=== PATIENT | female | born 1940 | race Caucasian/White ===

== ENCOUNTER 2022-11-25 09:49 | Inpatient (IN) | payer OTHER ==
[~2022-11-25] VITALS: Ht 167.6 cm; Wt 55.3 kg
[2022-11-25 09:50] VITALS: BP 128/78
--- NOTE | 2022-11-25 09:58 | NUR ---
[facility] TO ER BED 7
[2022-11-25] MEDS ORDERED: cefTRIAXone 1,000 MG in DEXT 5% MINI-BAG PLUS 50 ML IV ONE (10:10)
[2022-11-25] MEDS ORDERED: NACL 0.9% 2,000 ML IV SCH (10:10)
--- NOTE | 2022-11-25 10:45 | NUR ---
lab at bedside.
[2022-11-25] MEDS ORDERED: HUM SUBQ (11:00)
[2022-11-25] MEDS ORDERED: PRED20TA6 PO (11:00)
[2022-11-25] MEDS ORDERED: LEVO0.124 PO (11:00)
[2022-11-25] MEDS ORDERED: MAGN400T7 PO (11:00)
[2022-11-25] MEDS ORDERED: GLIP10TE PO (11:00)
[2022-11-25] MEDS ORDERED: INSU100S22 SUBQ (11:00)
[2022-11-25] MEDS ORDERED: CITA-71 PO (11:00)
[2022-11-25] MEDS ORDERED: ATOR20TA PO (11:00)
[2022-11-25] MEDS ORDERED: AZIT250T4 PO ×2 (11:00)
[2022-11-25] MEDS ORDERED: APIX2.5 PO (11:00)
[2022-11-25] MEDS ORDERED: DONE10TA10 PO (11:00)
--- NOTE | 2022-11-25 11:00 | NUR ---
82 y/o female biba from [facility] c/o generalized weakness x 3 days. Patient has a 20G IV Left Hand and a Bolus of 1000 ml NS started by EMS. Patient denies any pain. Patient is on 3 LPM. Medical History: AFIB, DM, Hypothyroid, Dementia, HLD, Alzheimers NKDA
--- NOTE | 2022-11-25 11:02 | NUR ---
MED REC COMPLETE
[2022-11-25 11:19] LABS: BASOPHILS % (AUTO) 0.1 % (0.0-2.0); HEMOGLOBIN 11.8 g/dL (12.0-16.0); LYMPHOCYTES # (AUTO) 0.5 K/uL (2.5-16.5); LYMPHOCYTES % (AUTO) 6.4 % (20.5-51.1); MEAN CORPUSCULAR HEMOGLOBIN 29 pg (27-31); MEAN CORPUSCULAR HGB CONC 33 g/dL (33-37); MEAN CORPUSCULAR VOLUME 87.5 fL (80-94); MONOCYTES # (AUTO) 0.2 K/uL (0.8-1.0); MONOCYTES % (AUTO) 2.8 % (1.7-9.3); NEUTROPHILS # (AUTO) 7.6 K/uL (1.8-7.7); NEUTROPHILS % (AUTO) 90.7 % (42.2-75.2); PLATELET COUNT (AUTO) 284 K/uL (140-450); RED BLOOD CELL COUNT(AUTO) 4.11 MIL/uL (4.20-5.40); RED CELL DISTRIBUTION WIDTH 15.9 % (11.6-13.7); WHITE BLOOD COUNT (AUTO) 8.4 K/uL (4.8-10.8)
[2022-11-25 11:28] LABS: ALBUMIN 3.1 g/dL (3.4-5.0); ANION GAP 14.2 (8-16); ASPARTATE AMINOTRANSFERASE 73 U/L (15-37); CHLORIDE 90 mmol/L (98-107); GLUCOSE 138 mg/dL (74-106); POTASSIUM 4.2 mmol/L (3.5-5.1); SODIUM SERUM 127 mmol/L (136-145); TOTAL BILIRUBIN 0.7 mg/dL (0.0-1.0); UREA NITROGEN, BLOOD 34 mg/dL (7-18)
--- NOTE | 2022-11-25 11:41 | NUR ---
DR. GARCIA, ADMITTING DOCTOR, EVALUATING PATIENT AT BEDSIDE.
--- NOTE | 2022-11-25 12:01 | NUR ---
LAB AT BEDSIDE.
[2022-11-25 12:17] LABS: APPEARANCE,URINE CLEAR (CLEAR); BILIRUBIN,URINE NEGATIVE (NEGATIVE); BLOOD, URINE 1+ (NEGATIVE); COLOR,URINE YELLOW (YELLOW); LEUKOCYTE ESTERASE ,URINE NEGATIVE (NEGATIVE); NITRITE, URINE NEGATIVE (NEGATIVE); UGLUCOSE NEGATIVE (NEGATIVE)
[2022-11-25] MEDS ORDERED: cefTRIAXone 1,000 MG VIAL ONE (12:30)
[2022-11-25] MEDS ORDERED: HYDROcodone/APAP 7.5/325 MG 1 TAB PO PRN (12:45)
[2022-11-25] MEDS ORDERED: ACETAMINOPHEN 325 MG TAB PO PRN (12:45)
[2022-11-25] MEDS ORDERED: DEXTROSE 50% 50 ML SYR IVP PRN (12:45)
[2022-11-25] MEDS ORDERED: INSULIN LISPRO SLIDING SCALE 100 UNITS/ML VIAL SUBQ PRN (12:45)
[2022-11-25] MEDS: NACL 0.9% 1,000 ML IV SCH ×2 (12:59→20:25)
--- NOTE | 2022-11-25 13:04 | NUR ---
The patient's care was reviewed and supervised by MADIE CLAYTON RN.
[2022-11-25] MEDS ORDERED: CRUSHER, PILL MC ONE (13:52)
[2022-11-25] MEDS ORDERED: VANCOMYCIN PER PHARMACY MC PRN (13:55)
[2022-11-25] MEDS: MAGNESIUM OXIDE 400 MG TAB PO SCH ×2 (13:56→18:04)
--- NOTE | 2022-11-25 14:03 | NUR ---
Lab at bedside.
[2022-11-25 14:32] LABS: ANION GAP 12.4 (8-16); CARBON DIOXIDE 27.6 mmol/L (21-32); CHLORIDE 92 mmol/L (98-107); GLUCOSE 162 mg/dL (74-106); SODIUM SERUM 127 mmol/L (136-145); UREA NITROGEN, BLOOD 32 mg/dL (7-18)
[2022-11-25 14:38] LABS: PROTHROMBIN TIME 12.2 secs (10.8-13.4)
[2022-11-25 14:45] LABS: CHOL/HDL RATIO 2.2 (1-4.5); FREE T4 (FREE THYROXINE) 0.64 ng/dL (0.76-1.46); MAGNESIUM 1.8 mg/dL (1.8-2.4); PHOSPHORUS 4.9 mg/dL (2.5-4.9); THYROID STIMULATING HORMONE 13.44 uIU/mL (0.34-3.74)
--- NOTE | 2022-11-25 15:18 | NUR ---
Ultrasound at bedside.
[2022-11-25] MEDS ORDERED: VANCOMYCIN 1,000 MG VIAL ONE (16:10)
[2022-11-25] MEDS ORDERED: INSULIN LISPRO 100 UNITS/ML VIAL SUBQ SCH (16:30)
--- NOTE | 2022-11-25 16:55 | NUR ---
Patient was made clean and dry. All needs met by staff.
[2022-11-25] MEDS: glipiZIDE ER 5 MG TABER PO SCH ×2 (16:57→20:20)
[2022-11-25] MEDS: VANCOMYCIN 1,000 MG in DEXTROSE 5% 250 ML IV SCH (17:02)
[2022-11-25] MEDS: BLOOD GLUCOSE MONITORING 1 DEV DEV FS SCH ×2 (17:04→20:25)
[2022-11-25] MEDS: INSULIN LISPRO SLIDING SCALE 100 UNITS/ML VIAL SUBQ PRN (17:06)
--- NOTE | 2022-11-25 17:15 | NUR ---
Patient was offered dinner tray. Tray left at bedside.
[2022-11-25] MEDS: DONEPEZIL 10 MG TAB PO SCH (18:03)
--- NOTE | 2022-11-25 18:18 | NUR ---
Patient will be admitted to care of DR. GARCIA. Admited to TELEMTRY. Will go to room 107-B. Belongings list completed. Report to JOVANNI FIELD.
[2022-11-25 18:32] VITALS: BP 116/67
--- NOTE | 2022-11-25 18:34 | NUR ---
The patient's care was reviewed and supervised by ED Agency Nurse 8, RN, RN.
--- NOTE | 2022-11-25 18:34 | NUR ---
Patient is an 82 year old female arrival to room 108 from [facility] and will be an admission under the care of Doctor_ for _. Patient is visiting with Doctor Chepe at bedside. She denies discomfort. Her breathing is moist sounding and tachypneic, 32 breaths per minute, she is on 4 liters via nasal cannula. Her archeologist shows atrial fibrillation at 118 beats per minute. She received a total of 2 liters of normal saline via intravenous route, was given 10 milligrams of aricept and glucotrol by mouth, 1 gram of vancomycin intravenous piggyback and 400 milligrams of magnesium by mouth in the emergency room. She is confused but answers simple questions in Slovak.
[2022-11-25] MEDS ORDERED: DIGOXIN 0.25 MG/ML AMP IV SCH (18:45)
[2022-11-25 20:00] VITALS: BP 96/52
[2022-11-25] MEDS: ATORVASTATIN 20 MG TAB PO SCH (20:20)
[2022-11-25] MEDS: DOCUSATE SODIUM 100 MG GELCAP PO SCH (20:20)
[2022-11-25] MEDS: APIXABAN 2.5 MG TAB PO SCH (20:21)
[2022-11-25] MEDS: CITALOPRAM 20 MG TAB PO SCH (20:21)
[2022-11-25] MEDS: PIPERACILLIN/TAZOBACTAM 3.375 GM in DEXTROSE 5% 50 ML IV SCH (20:22)
[2022-11-25] MEDS: INSULIN LANTUS 100 UNITS/ML 10 ML VIAL SUBQ SCH (20:25)
--- NOTE | 2022-11-25 20:30 | NUR ---
ASSUMED CARE OF PATIENT AT THIS TIME. A/O X 4. VSS. AFEBRILE. RESPIRATIONS EVEN AND UNLABOTRED. ON O2 AT 4LNC WITH O2 SAT OF 97%. A-FIB ON TELE MONITOR. DAUGHTER AT BEDSIDE AND ANSWERED ALL ADMISSION QUESTIONS. PATIENT SKIN INTACT. DENIES PAIN AT THIS TIME. ORIENTED TO ROOM AND CALL LIGHT SYSTEM. WILL CONTINUE TO MONITOR FOR SAFETY. Brian PÉREZ RN.
[2022-11-25] MEDS ORDERED: NON-FORMULARY ITEM (Insulin Glargine,Hum.rec.anlog (Lantus Solostar) 10 UNIT) SUBQ SCH (21:00)
[2022-11-26] VITALS (9 sets, daily range): BP systolic 80–130; BP diastolic 38–77
--- NOTE | 2022-11-26 00:30 | NUR ---
PATIENT SLEEPING COMFORTABLY WITH NO ACUTE DISTRESS NOTED. WILL CONTINUE TO MONITOR FOR SAFETY. Brian PÉREZ RN.
[2022-11-26] MEDS: PIPERACILLIN/TAZOBACTAM 3.375 GM in DEXTROSE 5% 50 ML IV SCH ×3 (04:46→21:30)
[2022-11-26] MEDS ORDERED: DIGOXIN 0.25 MG/ML AMP IV SCH ×2 (06:00)
--- NOTE | 2022-11-26 06:00 | NUR ---
PATIENT REMAINS IN STABLE CONDITION. NO ACUTE DISTRESS NOTED. Brian PÉREZ RN.
[2022-11-26] MEDS ORDERED: LEVOTHYROXINE 0.025 MG TAB ONE (06:15)
[2022-11-26] MEDS ORDERED: LEVOTHYROXINE 0.1 MG TAB ONE (06:15)
[2022-11-26] MEDS: BLOOD GLUCOSE MONITORING 1 DEV DEV FS SCH ×4 (06:18→20:19)
[2022-11-26] MEDS: LEVOTHYROXINE 0.1 MG, LEVOTHYROXINE 0.025 MG PO SCH ×2 (06:19)
[2022-11-26 07:04] LABS: BASOPHILS % (AUTO) 0.1 % (0.0-2.0); HEMATOCRIT 35.9 % (36-48); LYMPHOCYTES # (AUTO) 0.9 K/uL (2.5-16.5); LYMPHOCYTES % (AUTO) 9.8 % (20.5-51.1); MEAN CORPUSCULAR HEMOGLOBIN 29 pg (27-31); MEAN CORPUSCULAR HGB CONC 33 g/dL (33-37); MEAN CORPUSCULAR VOLUME 86.2 fL (80-94); MONOCYTES # (AUTO) 0.6 K/uL (0.8-1.0); MONOCYTES % (AUTO) 6.7 % (1.7-9.3); NEUTROPHILS # (AUTO) 7.8 K/uL (1.8-7.7); NEUTROPHILS % (AUTO) 83.4 % (42.2-75.2); PLATELET COUNT (AUTO) 316 K/uL (140-450); RED BLOOD CELL COUNT(AUTO) 4.16 MIL/uL (4.20-5.40); RED CELL DISTRIBUTION WIDTH 15.4 % (11.6-13.7); WHITE BLOOD COUNT (AUTO) 9.3 K/uL (4.8-10.8)
[2022-11-26 07:07] LABS: CARBON DIOXIDE 27.4 mmol/L (21-32); CHLORIDE 93 mmol/L (98-107); CREATININE 0.9 mg/dL (0.6-1.3); GLUCOSE 109 mg/dL (74-106); POTASSIUM 4.4 mmol/L (3.5-5.1); SODIUM SERUM 128 mmol/L (136-145); UREA NITROGEN, BLOOD 29 mg/dL (7-18)
--- NOTE | 2022-11-26 07:42 | NUR ---
RECEIVED PT CARE AND REPORT FROM TATE BAIG. PT IS RESTING IN BED SEMI FOWLERS WITH OU CLOSED. NO VISIBLE S/S OF DISTRESS, DISCOMFORT, PAIN OR SOB. CALL LIGHT IS WITHIN REACH, ALL NEEDS MET AT THIS TIME.
[2022-11-26 07:46] LABS: MAGNESIUM 1.8 mg/dL (1.8-2.4); PHOSPHORUS 4.1 mg/dL (2.5-4.9)
--- NOTE | 2022-11-26 08:00 | NUR ---
MISTAKE MADE ON VITALS FOR 0800. RESPIRATIONS DOCUMENTED 80. RESPIRATIONS WERE 20 AT THIS TIME.
[2022-11-26] MEDS: MAGNESIUM OXIDE 400 MG TAB PO SCH ×3 (08:09→17:44)
[2022-11-26] MEDS: APIXABAN 2.5 MG TAB PO SCH ×2 (08:10→21:00)
[2022-11-26] MEDS: glipiZIDE ER 5 MG TABER PO SCH ×4 (08:10→20:32)
[2022-11-26] MEDS: DOCUSATE SODIUM 100 MG GELCAP PO SCH ×2 (08:11→21:00)
[2022-11-26] MEDS: PANTOPRAZOLE 40 MG INJ VIAL IVP SCH (08:11)
--- NOTE | 2022-11-26 08:17 | NUR ---
PATIENT WAS GIVEN 0900 MEDICATIONS. BREAKFAST AT BEDSIDE. OFFERED TO PT BUT SHE REFUSED. ATTEMPTED TO ENCOURAGE PATIENT TO EAT. HOWEVER, SHE CONTINUED TO REFUSE AND STATE THAT SHE IS NOT HUNGRY AT THIS TIME. OFFERED ALTERNATIVE SNACKS BUT PT CONTINUES TO REFUSE.
--- NOTE | 2022-11-26 08:25 | NUR ---
CALLED PHARMACY AND SPOKE WITH JOSE M. CONFIRMED THAT 0615 SYNTHROID ORDERS WERE GIVEN AT 0619 BY NOC SHIFT.
--- NOTE | 2022-11-26 08:30 | NUR ---
SPOKE WITH DR. SNOW. ORDERD STAT CXR FOR CONGESTION AND SOB. CXR ORDERED. ALSO ORDERED STAT BLOOD SUGAR. BLOOD SUGAR 111. WILL REPORT TO DR. SNOW AND AWAIT FURTHER ORDERS.
[2022-11-26] MEDS ORDERED: NON-FORMULARY ITEM (Levothyroxine Sodium* (Synthroid*) 0.125 MG) PO SCH (09:00)
[2022-11-26] MEDS ORDERED: FUROSEMIDE 20 MG/2 ML VIAL IVP SCH (09:11)
[2022-11-26] MEDS: ALBUTEROL SULFATE/IPRATROPIU 3 ML SOL IH SCH ×3 (11:00→22:28)
[2022-11-26] MEDS: VANCOMYCIN 1,000 MG in DEXTROSE 5% 250 ML IV SCH (16:31)
[2022-11-26] MEDS: ONDANSETRON 4 MG/2 ML VIAL IVP PRN (16:32)
--- NOTE | 2022-11-26 16:51 | NUR ---
DAUGHTER FABI PRESENT AT BEDSIDE. ASKING WHAT PLAN IS FOR NUTRITION FOR PT D/T PT REFUSAL TO EAT. PT APPEARS TO BE PERSPIRING AND IS COMPLAINING OF NAUSEA AND BODY PAIN. ADMINISTERED PRN ZOFRAN 4MG IV FOR NAUSEA AND PRN TYLENOL 650MG FOR PAIN. WILL CONTINUE TO MONITOR. EMESIS BAG PROVIDED. TEXTED DR. SNOW TO REPORT PT CONDITION AND ASKING ABOUT NUTRITION PLAN FOR PATIENT.
--- NOTE | 2022-11-26 16:58 | NUR ---
DR. SNOW RESPONDED AND ORDERED SWALLOW EVAL. ORDER PLACED.
[2022-11-26] MEDS ORDERED: FUROSEMIDE 20 MG/2 ML VIAL IVP ONE (17:15)
[2022-11-26] MEDS: DONEPEZIL 10 MG TAB PO SCH (17:44)
--- NOTE | 2022-11-26 18:41 | NUR ---
PT IS RESTING IN BED SEMI FOWLERS WITH OU CLOSED. NO VISIBLE S/S OF DISTRESS OR DISCOMFORT. PT DENIES ANY PAIN OR SOB AT THIS TIME. STATES SHE IS NO LONGER FEELING NAUSEOUS AT THIS TIME. PT NO LONGER PERSPIRING AT THIS TIME. FAMILY AT BEDSIDE. CALL LIGHT IS WITHIN REACH, ALL NEEDS MET AT THIS TIME. WILL ENDORSE TO NOC SHIFT NURSE.
--- NOTE | 2022-11-26 20:12 | NUR ---
ASSUMED CARE OF PATIENT AT THIS TIME. PATIENT BLOOD PRESSURE 80/38 WITH HEART RATE OF 65. PATIENT STATES SHE IS NOT FEELING WELL AND IS DIAPHORETIC. BLOOD GLUCOSE LEVEL 133. DR. SNOW CALLED AND NOTIFIED. ORDERS GIVEN TO TRANSFER PATIENT TO ICU AND START LEVOPHED. JOVANNI DONAHUELICENSED MASSAGE PRACTITIONER NURSE NOTIFIED. Brian PÉREZ RN.
[2022-11-26] MEDS: INSULIN LANTUS 100 UNITS/ML 10 ML VIAL SUBQ SCH (20:33)
--- NOTE | 2022-11-26 20:33 | NUR ---
PATIENT BLOOD GLUCOSE 133. PATIENT HAS NOT EATEN IN OVER 3 DAYS. BLOOD GLUCOSE MEDICATIONS HELD. Brian PÉREZ RN.
--- NOTE | 2022-11-26 20:54 | NUR ---
TRANSFERRING PATIENT TO ICU BED 5. FABI PATIENT'S DAUGHTER CALLED AND NOTIFIED. Brian PÉREZ RN.
[2022-11-26] MEDS: ATORVASTATIN 20 MG TAB PO SCH (21:00)
[2022-11-26] MEDS: MIDODRINE 5 MG TAB PO SCH (21:00)
[2022-11-26] MEDS: CITALOPRAM 20 MG TAB PO SCH (21:00)
--- NOTE | 2022-11-26 21:01 | NUR ---
PT. TRANSFERRED TO ICU FROM TELEMETRY UNIT DUE TO HYPOTENSION AND NEED LEVOPHED DRIP PER DR. SNOW. REPORT GIVEN BY JOVANNI YBARRA. PT. ALERT, AWAKE AND WEAK. BP 80/40, HR 72, R 22, O2 SAT 95% NC 2L. PERIPHERAL IV TO LEFT HAND 20G PATENT AND INTACT. PER REPORT PT. HAS A VERY POOR APPETITE. SKIN INTACT. INITIAL ASSESSMENT DONE. BILATERAL LUNG SOUNDS DIMINISHED. EYES REACTIVE TO LIGHT AND ACCOMMODATION. ABDOMINAL SOUNDS HYPOACTIVE. ANTICIPATED ALL NEEDS. REPOSITIONED AND PLACED IN COMFORTABLE POSITION. NO S/S OF PAIN. WILL CONT. TO MONITOR.
--- NOTE | 2022-11-26 21:01 | NUR ---
REPORT GIVEN TO JOVANNI BANERJEE. Brian PÉREZ RN.
[2022-11-26] MEDS ORDERED: NOREPINEPHRINE 4 MG/4 ML VIAL IV ONE (21:05)
[2022-11-26] MEDS: NOREPINEPHRINE 4 MG in DEXTROSE 5% 250 ML IV PRN (21:10)
[2022-11-26] MEDS ORDERED: NOREPINEPHRINE 4 MG in DEXTROSE 5% 250 ML IV PRN (22:25)
--- NOTE | 2022-11-26 22:50 | NUR ---
PT. SCHEDULE 2100 PO MEDICATIONS NOT GIVEN DUE TO PT.SWALLOWING ABILITY IS SO WEAK. WILL CONT. TO MONITOR.
--- NOTE | 2022-11-26 22:54 | NUR ---
SENT MESSAGE TO DR. SNOW THAT LEVOPHED DRIP 4MG STARTED AND PO MEDS FOR 2100 NOT GIVEN DUE TO PT. WEAK ABILITY TO SWALLOW. DR. SNOW RESPONDED OK, TY. WILL ENDORSE TO THE NEXT SHIFT.
[2022-11-27] VITALS (25 sets, daily range): BP systolic 95–121; BP diastolic 43–76
[2022-11-27] MEDS: PIPERACILLIN/TAZOBACTAM 3.375 GM in DEXTROSE 5% 50 ML IV SCH ×3 (04:55→20:24)
--- NOTE | 2022-11-27 05:05 | NUR ---
LAB CAME AND DRAWN BLOOD FOR MG,PHOS,CBC AND BMP.
[2022-11-27 06:15] LABS: MAGNESIUM 1.6 mg/dL (1.8-2.4); PHOSPHORUS 3.7 mg/dL (2.5-4.9)
[2022-11-27] MEDS: LEVOTHYROXINE 0.1 MG, LEVOTHYROXINE 0.025 MG PO SCH ×2 (06:22)
--- NOTE | 2022-11-27 06:23 | NUR ---
SYNTHROID PO NOT GIVEN, PT. TOO WEAK TO SWALLOW, WITH GENERALIZED WEAKNESS. CONT. ON LEVOPHED DRIP 6MCG/MIN. WILL ENDORSE TO THE NEXT SHIFT.
[2022-11-27 06:37] LABS: CARBON DIOXIDE 25.1 mmol/L (21-32); CHLORIDE 90 mmol/L (98-107); CREATININE 1.2 mg/dL (0.6-1.3); GLUCOSE 180 mg/dL (74-106); POTASSIUM 3.1 mmol/L (3.5-5.1); SODIUM SERUM 128 mmol/L (136-145); UREA NITROGEN, BLOOD 29 mg/dL (7-18)
[2022-11-27 07:08] LABS: MONOCYTES # (AUTO) 0.7 K/uL (0.8-1.0)
--- NOTE | 2022-11-27 07:10 | NUR ---
PATIENT HAS BEEN SCREENED AND CATEGORIZED HIGH NUTRITION RISK. PATIENT WILL BE SEEN WITHIN 1-2 DAYS OF ADMISSION. 11/27/22-11/30/[address] CONSULT RECEIVED FOR DIABETES AND DECREASE APPETITE 3 DAYS
[2022-11-27] MEDS: glipiZIDE ER 5 MG TABER PO SCH (07:30)
[2022-11-27] MEDS: BLOOD GLUCOSE MONITORING 1 DEV DEV FS SCH ×4 (07:30→20:42)
[2022-11-27 07:42] LABS: HEMOGLOBIN 12.9 g/dL (12.0-16.0); RED BLOOD CELL COUNT(AUTO) 4.58 MIL/uL (4.20-5.40); WHITE BLOOD COUNT (AUTO) 15.9 K/uL (4.8-10.8)
[2022-11-27 07:43] LABS: HEMATOCRIT 39.6 % (36-48); MEAN CORPUSCULAR HEMOGLOBIN 28 pg (27-31); MEAN CORPUSCULAR VOLUME 86.4 fL (80-94)
[2022-11-27 07:44] LABS: MEAN CORPUSCULAR HGB CONC 33 g/dL (33-37); PLATELET COUNT (AUTO) 333 K/uL (140-450); RED CELL DISTRIBUTION WIDTH 15.4 % (11.6-13.7)
[2022-11-27 07:45] LABS: MONOCYTES % (AUTO) 4.4 % (1.7-9.3); NEUTROPHILS % (AUTO) 91.5 % (42.2-75.2)
[2022-11-27 07:46] LABS: BASOPHILS % (AUTO) 0.1 % (0.0-2.0); LYMPHOCYTES # (AUTO) 0.6 K/uL (2.5-16.5); NEUTROPHILS # (AUTO) 14.5 K/uL (1.8-7.7)
[2022-11-27] MEDS: ALBUTEROL SULFATE/IPRATROPIU 3 ML SOL IH SCH ×5 (07:55→23:21)
[2022-11-27] MEDS: DOCUSATE SODIUM 100 MG GELCAP PO SCH ×2 (09:04→20:26)
[2022-11-27] MEDS: MIDODRINE 5 MG TAB PO SCH ×2 (09:06→20:27)
[2022-11-27] MEDS: MAGNESIUM OXIDE 400 MG TAB PO SCH ×3 (09:06→17:21)
[2022-11-27] MEDS: APIXABAN 2.5 MG TAB PO SCH ×2 (09:07→20:26)
[2022-11-27] MEDS: PANTOPRAZOLE 40 MG INJ VIAL IVP SCH (09:26)
[2022-11-27] MEDS: INSULIN LISPRO SLIDING SCALE 100 UNITS/ML VIAL SUBQ PRN ×3 (09:30→20:40)
[2022-11-27] MEDS: ONDANSETRON 4 MG/2 ML VIAL IVP PRN (10:47)
--- NOTE | 2022-11-27 11:33 | NUR ---
11/27/22 RD INITIAL ASSESSMENT COMPLETED PLEASE REFER TO NUTRITION ASSESSMENT UNDER CARE ACTIVITY FOR ESTIMATED NUTRITIONAL NEEDS. 1. CONTINUE CCHO DIET TOLERATED. -WHEN/IF MEDICALLY APPROPROPRIATE TO INITIATE TF, RECOMMEND GLUCERNA 1.2 CRUZ WITH A GOAL RATE OF 55 ML/HR ; FWF 150 ML Q8H 2. RECOMMEND GLUCERNA BID TO OPTIMIZE NUTRITIONAL NEEDS 3. RD TO FOLLOW-UP 2-3 DAYS, HIGH RISK SALOME BREWSTER RD
[2022-11-27] MEDS: FUROSEMIDE 20 MG/2 ML VIAL IVP SCH ×2 (11:41→20:25)
[2022-11-27] MEDS ORDERED: KCL 20 MEQ IN 100 mL PREMIX 200 ML IV SCH (14:00)
[2022-11-27] MEDS: VANCOMYCIN 1,000 MG in DEXTROSE 5% 250 ML IV SCH (16:00)
[2022-11-27] MEDS: DONEPEZIL 10 MG TAB PO SCH (17:21)
--- NOTE | 2022-11-27 18:36 | NUR ---
PT REMAINED STABLE THROUGHOUT SHIFT AND VITAL SIGNS WERE STABLE BUT STILL NEEDS PRESSOR REQUIREMENTS. PRN PAIN MEDS GIVEN FOR BACK PAIN. PT WAS PLACED ON BIPAP MACHINE TO EASE WORK OF BREATHING IN WHICH PATIENT TOLERATED WELL. LASIX WAS STARTED TO DIURESE PATIENT IN RESPONSE TO CRACKLY LUNG SOUNDS. TOLERATED ALL PO INTAKE WITHOUT COMPLICATION. PICC LINE WAS PLACED TODAY IN RIGHT UPPER ARM AND PLACEMENT WAS CONFIRMED
[2022-11-27 19:16] LABS: BARBITURATE, URINE NEGATIVE ng/ml (NEG <=200); BENZODIAZEPINE, URINE NEGATIVE ng/mL (NEG <=200); CANNABINOID, URINE NEGATIVE ng/mL (NEG <=50); COCAINE, URINE NEGATIVE ng/mL (NEG <=300); OPIATE, URINE NEGATIVE ng/mL (NEG <=2000); PHENCYCLIDINE SCREEN,URINE NEGATIVE ng/mL (NEG <=25)
--- NOTE | 2022-11-27 19:52 | NUR ---
PT TAKEN OFF BIPAP AND PLACED ON 2L N/C. PT TOLERATING WELL. NO NOTED RESP DISTRESS OR SOB. WILL CONT TO MONITOR.
[2022-11-27] MEDS: MAG SULF 2000 MG/WATER PREMIX 50 ML IV PRN (20:22)
[2022-11-27] MEDS: ATORVASTATIN 20 MG TAB PO SCH (20:28)
[2022-11-27] MEDS: NOREPINEPHRINE 4 MG in DEXTROSE 5% 250 ML IV PRN (20:48)
[2022-11-27] MEDS: CITALOPRAM 20 MG TAB PO SCH (21:27)
--- NOTE | 2022-11-27 21:36 | NUR ---
RECEIVED PT. FROM DAY SHIFT JOVANNI BLEDSOE. PT. AWAKE, ALERT AND FOLLOW SIMPLE COMMANDS. PT. ON BIPAP WITH O2 SAT 98%. IV TO RIGHT UPPER ARM PICC LINE, RUNNING LEVOPHED DRIP AT 6MCG/MIN. PERIPHERAL IV TO LEFT HAND 20G PATENT, INTACT, CAPPED AND FLUSHED. BILATERAL LUNG SOUNDS DIMINISHED. BOWEL SOUNDS ACTIVE. DIET IS CONSISTENT CARBOHYDRATE. SKIN INTACT. REPOSITIONED AND PLACED IN COMFORTABLE POSITION. PLACED CALL LIGHT WITHIN REACH. SCHEDULED IVPB AND PO MEDS GIVEN AND PT. NO PROBLEM IN SWALLOWING PO MEDS. MG LEVEL 1.6 AND MAG RIDER IVPB PRN GIVEN. MAKE ALL NEEDS KNOWN. NO S/S OF RESPIRATORY DISTRESS AND NO S/S OF PAIN. WILL CONT. TO MONITOR.
[2022-11-28] VITALS (24 sets, daily range): BP systolic 96–121; BP diastolic 44–64
[2022-11-28] MEDS: ALBUTEROL SULFATE/IPRATROPIU 3 ML SOL IH SCH ×6 (03:25→22:55)
[2022-11-28 05:12] LABS: BASOPHILS % (AUTO) 0.3 % (0.0-2.0); EOSINOPHILS # (AUTO) 0.1 K/uL (0-0.4); EOSINOPHILS % (AUTO) 1.2 % (0.0-4.0); HEMATOCRIT 35.2 % (36-48); HEMOGLOBIN 11.9 g/dL (12.0-16.0); LYMPHOCYTES # (AUTO) 0.9 K/uL (2.5-16.5); LYMPHOCYTES % (AUTO) 12.8 % (20.5-51.1); MEAN CORPUSCULAR HEMOGLOBIN 29 pg (27-31); MEAN CORPUSCULAR HGB CONC 34 g/dL (33-37); MEAN CORPUSCULAR VOLUME 84.2 fL (80-94); MONOCYTES # (AUTO) 0.3 K/uL (0.8-1.0); MONOCYTES % (AUTO) 5.1 % (1.7-9.3); NEUTROPHILS # (AUTO) 5.4 K/uL (1.8-7.7); NEUTROPHILS % (AUTO) 80.6 % (42.2-75.2); PLATELET COUNT (AUTO) 334 K/uL (140-450); RED BLOOD CELL COUNT(AUTO) 4.17 MIL/uL (4.20-5.40); RED CELL DISTRIBUTION WIDTH 15.8 % (11.6-13.7); WHITE BLOOD COUNT (AUTO) 6.7 K/uL (4.8-10.8)
[2022-11-28] MEDS: PIPERACILLIN/TAZOBACTAM 3.375 GM in DEXTROSE 5% 50 ML IV SCH ×3 (05:15→20:17)
[2022-11-28 05:32] LABS: ANION GAP 9.5 (8-16); CARBON DIOXIDE 33.2 mmol/L (21-32); CHLORIDE 91 mmol/L (98-107); CREATININE 1.1 mg/dL (0.6-1.3); GLUCOSE 134 mg/dL (74-106); SODIUM SERUM 131 mmol/L (136-145); UREA NITROGEN, BLOOD 22 mg/dL (7-18)
[2022-11-28 05:34] LABS: MAGNESIUM 2.1 mg/dL (1.8-2.4); PHOSPHORUS 2.7 mg/dL (2.5-4.9)
[2022-11-28 05:37] LABS: POTASSIUM 2.7 mmol/L (3.5-5.1)
--- NOTE | 2022-11-28 05:37 | NUR ---
LAB CALLED FOR K LEVEL 2.7. WILL SEND MESSAGE TO DR. GARCIA TO REPORT.
[2022-11-28] MEDS ORDERED: LEVOTHYROXINE 0.1 MG TAB ONE (06:15)
[2022-11-28] MEDS: LEVOTHYROXINE 0.1 MG, LEVOTHYROXINE 0.025 MG PO SCH ×2 (06:15)
[2022-11-28] MEDS ORDERED: LEVOTHYROXINE 0.025 MG TAB ONE (06:15)
[2022-11-28] MEDS: POTASSIUM CHLORIDE 10 MEQ TABER PO PRN (06:19)
--- NOTE | 2022-11-28 06:20 | NUR ---
K DUR 40 MEQ PO PRN GIVEN. PT. K LEVEL 2.7. SENT MESSAGE TO DR. GARCIA AND REPORTED. WILL WAIT FOR HER RESPONSE. WILL ENDORSE TO THE NEXT SHIFT.
--- NOTE | 2022-11-28 06:39 | NUR ---
DR. GARCIA ORDERED TO GIVE ANOTHER K RIDER 40MEQ IV.WILL ORDER AND WILL CARRY OUT.
[2022-11-28] MEDS ORDERED: KCL 20 MEQ IN 100 mL PREMIX 200 ML IV ONE ×2 (06:45→06:58)
[2022-11-28] MEDS: BLOOD GLUCOSE MONITORING 1 DEV DEV FS SCH ×4 (07:34→21:31)
[2022-11-28] MEDS: NOREPINEPHRINE 4 MG in DEXTROSE 5% 250 ML IV PRN (08:35)
--- NOTE | 2022-11-28 08:36 | NUR ---
PT. WITH LOW ANGEL SCALE AT MODERATE TO HIGH RISK, CONTINUE TO FOLLOW PRESSURE INJURY PREVENTION INTERVENTIONS. -POSITIONING: TURN AND REPOSITION PATIENT Q 2H OR SOONER USE PILLOWS TO KEEP BONY PROMINENCES FROM DIRECT CONTACT WITH SURFACES USE REPOSITIONING WEDGES TO PROVIDE 30-DEGREE ANGLE FOR SIDE LYING POSITIONS OFFLOADING OR FOAM DRESSING TO ALL TUBING TO PREVENT MEDICAL DEVICES RELATED PRESSURE INJURY -RE-EVALUATING AND MANAGING INCONTINENCE MONITOR SKIN CONDITION DURING POSITION CHANGE DO NOT MASSAGE REDNESS, BONY PROMINENCES FREQUENT TOMMY-CARE AND PROVIDE BARRIER CREAMS PRN IF SOILING MOISTURE CONTROL BY OFFER BED SEPULVEDA/URINAL /ABSORBENT PAD TO WICK AND HOLD MOISTURE KEEP SKIN DRY AND PROTECT FROM FRICTION -MANAGE FRICTION/SHEAR/MOBILITY KEEP HOB AT THE LOWEST LEVEL OF ELEVATION NO MORE THAN 30 DEGREE UNLESS OTHERWISE CONTRAINDICATED USE LIFT SHEET OR TRANSFER DEVICE TO MOVE PATIENT AND PREVENT LATERAL SHEER. PROTECT HEELS, ELBOWS BONY PROMINENCES WITH SKIN BERRIES OR FOAM DRESSING IF EXPOSED TO FRICTION OFFLOAD BILATERAL HEELS BY PLACING PILLOWS UNDER CALVES AT ALL TIMES, UNLESS OTHERWISE CONTRAINDICATED -PRESSURE REDISTRIBUTION SURFACE THERAPY ENE ISOFLEX MATTRESS -NUTRITION: PLEASE FOLLOW RD RECOMMENDATIONS AND OFFER NUTRITION SUPPLEMENTS IF ORDERED. PLEASE CONTACT WOUND CARE NURSE FOR ANY QUESTION AND CHANGE OF WOUND CONDITION.
[2022-11-28] MEDS: APIXABAN 2.5 MG TAB PO SCH ×2 (09:47→20:19)
[2022-11-28] MEDS: DOCUSATE SODIUM 100 MG GELCAP PO SCH ×2 (09:47→20:18)
[2022-11-28] MEDS: PANTOPRAZOLE 40 MG INJ VIAL IVP SCH (09:48)
[2022-11-28] MEDS: MAGNESIUM OXIDE 400 MG TAB PO SCH (09:48)
[2022-11-28] MEDS: FUROSEMIDE 20 MG/2 ML VIAL IVP SCH ×2 (09:49→20:18)
[2022-11-28] MEDS: MIDODRINE 5 MG TAB PO SCH ×2 (09:50→20:20)
[2022-11-28] MEDS: INSULIN LISPRO SLIDING SCALE 100 UNITS/ML VIAL SUBQ PRN ×2 (09:55→16:13)
[2022-11-28] MEDS ORDERED: MAGNESIUM OXIDE 400 MG TAB PO PRN (10:00)
--- NOTE | 2022-11-28 10:28 | NUR ---
POTASSIUM REPLACED, ATTEMPTED TO FEED PATIENT BUT PATIENT REFUSED AFTER A COUPLE OF BITES. WAS ABLE TO SWALLOW THE FEW BITES WITHOUT COMPLICATION. EXPLAINED THE IMPORTANCE OF EATING REGULARLY BUT PATIENT INSISTS SHE IS NOT HUNGRY
--- NOTE | 2022-11-28 12:24 | NUR ---
DC PLANNING ASSESSMENT COMPLETE PLEASE REFER TO ASSESSMENT FOR ADDITIONAL DETAILS FABI REPORTS TENTATIVE DC PLAN IS FOR PT TO RETURN TO [facility], WHEN MEDICALLY CLEARED BY PHYSICIAN. Addendum: 11/28/22 at 1225 by Gustavo Spangler SS Amended: Links added.
[2022-11-28] MEDS: VANCOMYCIN 1,000 MG in DEXTROSE 5% 250 ML IV SCH (16:02)
[2022-11-28] MEDS: DONEPEZIL 10 MG TAB PO SCH (16:02)
--- NOTE | 2022-11-28 18:42 | NUR ---
PT REMAINED STABLE THROUGHOUT SHIFT AND HAS REMAINED ON LEVO AT 4MCG/MIN. ATTEMPTED TO TITRATE DOWN BUT BLOOD PRESSURE DID NOT TOLERATE. HAD 1 BM THAT WAS MODERATE AND PASTY. NUTRITIONAL CONSULT CAME TO BEDSIDE AND CHANGED DIET TO MECHANICAL SOFT DIET. POTASSIUM WAS REPLACED IN THE AM. NO PRN PAIN MEDS GIVEN. PT TURNED Q 2. SKIN WAS CLEAR AND MEPILEX IN PLACE. HAD LITTLE APPETITE IN THE AM DESPITE ENCOURAGEMENT BUT IT IS NOTED THAT THE FAMILY MEMBERS WHO CAME TO VISIT WERE ABLE TO GET HER TO EAT MORE. DIURETICS WERE GIVEN, PUREWICK REMAINS IN PLACE AND IS FUNCTIONAL
--- NOTE | 2022-11-28 19:30 | NUR ---
RECEIVED PT IN BED FROM DAY SHIFT JOVANNI BLEDSOE. PT ALERT AND ORIENTED, FOLLOW SIMPLE COMMANDS. ASSESSMENT DONE BILATERAL LUNG SOUNDS CRACKLES. NO SHORTNESS OF BREATH AND ON ROOM AIR WITH 99% SATURATION. EYES REACTIVE TO LIGHTS AND ACCOMMODATION. NORMAL BOWEL SOUNDS WITH NO TENDERNESS OR DISTENSION. IV RIGHT UPPER ARM PICC LINE. NO S/S OF INFECTION OR INFILTRATION. INFUSING LEVOPHED AT 4MCG/MIN. CARDIAC RHYTHM ATRIAL FIBRILLATION. SKIN CLEAN, DRY, WARM, AND INTACT. PT INCONTINENT ON PUREWICK. GENERALIZED WEAKNESS. PLACED IN COMFORTABLE POSITION WITH NO S/S OF DISTRESS. PLACED CALL LIGHT AND BELONGINGS WITHIN REACH. BED AT LOWEST POSITION WITH RAILS UP X2. FALL PRECAUTION, ASPIRATION PRECAUTION ENFORCED. HOURLY ROUNDS ONGOING. MAKE ALL NEEDS KNOWN. WILL CONTINUE TO MONITOR FOR CHANGE OF CONDITION AT THIS TIME.
[2022-11-28] MEDS: ATORVASTATIN 20 MG TAB PO SCH (20:20)
[2022-11-28] MEDS: CITALOPRAM 20 MG TAB PO SCH (22:00)
[2022-11-29] VITALS (23 sets, daily range): BP systolic 91–133; BP diastolic 45–72
[2022-11-29] MEDS: NOREPINEPHRINE 4 MG in DEXTROSE 5% 250 ML IV PRN (02:34)
[2022-11-29] MEDS: ALBUTEROL SULFATE/IPRATROPIU 3 ML SOL IH SCH ×5 (03:04→23:50)
[2022-11-29 05:11] LABS: BASOPHILS % (AUTO) 0.3 % (0.0-2.0); EOSINOPHILS # (AUTO) 0.1 K/uL (0-0.4); EOSINOPHILS % (AUTO) 1.8 % (0.0-4.0); HEMATOCRIT 34.7 % (36-48); HEMOGLOBIN 11.6 g/dL (12.0-16.0); LYMPHOCYTES # (AUTO) 0.9 K/uL (2.5-16.5); LYMPHOCYTES % (AUTO) 14.8 % (20.5-51.1); MEAN CORPUSCULAR HEMOGLOBIN 29 pg (27-31); MEAN CORPUSCULAR HGB CONC 34 g/dL (33-37); MEAN CORPUSCULAR VOLUME 85.1 fL (80-94); MONOCYTES # (AUTO) 0.3 K/uL (0.8-1.0); MONOCYTES % (AUTO) 5.3 % (1.7-9.3); NEUTROPHILS # (AUTO) 4.8 K/uL (1.8-7.7); NEUTROPHILS % (AUTO) 77.8 % (42.2-75.2); PLATELET COUNT (AUTO) 382 K/uL (140-450); RED BLOOD CELL COUNT(AUTO) 4.07 MIL/uL (4.20-5.40); RED CELL DISTRIBUTION WIDTH 15.2 % (11.6-13.7); WHITE BLOOD COUNT (AUTO) 6.1 K/uL (4.8-10.8)
[2022-11-29 05:18] LABS: ANION GAP 5.1 (8-16); CARBON DIOXIDE 39.1 mmol/L (21-32); CHLORIDE 89 mmol/L (98-107); CREATININE 0.9 mg/dL (0.6-1.3); GLUCOSE 130 mg/dL (74-106); POTASSIUM 3.2 mmol/L (3.5-5.1); SODIUM SERUM 130 mmol/L (136-145); UREA NITROGEN, BLOOD 18 mg/dL (7-18)
[2022-11-29 05:22] LABS: MAGNESIUM 1.4 mg/dL (1.8-2.4); PHOSPHORUS 2.5 mg/dL (2.5-4.9)
[2022-11-29] MEDS: PIPERACILLIN/TAZOBACTAM 3.375 GM in DEXTROSE 5% 50 ML IV SCH ×3 (05:51→20:47)
[2022-11-29] MEDS ORDERED: LEVOTHYROXINE 0.025 MG TAB ONE (05:52)
[2022-11-29] MEDS ORDERED: LEVOTHYROXINE 0.1 MG TAB ONE (05:53)
[2022-11-29] MEDS: LEVOTHYROXINE 0.1 MG, LEVOTHYROXINE 0.025 MG PO SCH ×2 (05:53)
--- NOTE | 2022-11-29 07:25 | NUR ---
SBAR REPORT RECEIVED FROM LAVONNE BAIG, ALL CARES ASSUMED. PT AWAKE AND ALERT, TALKING WITH STAFF. PT ON RA. LEVOPHED 4MCG/MIN INFUSING TO SYDNEY PICC. PUREWICK IN PLACE, CONNECTED TO WALL SUCTION. BED IN LOW AND LOCKED POSITION.
--- NOTE | 2022-11-29 07:25 | NUR ---
REPORT GIVEN TO DANIELITO MOROCHO RN FOR CONTINUITY OF CARE.
[2022-11-29] MEDS: BLOOD GLUCOSE MONITORING 1 DEV DEV FS SCH ×4 (08:01→21:06)
[2022-11-29] MEDS: INSULIN LISPRO SLIDING SCALE 100 UNITS/ML VIAL SUBQ PRN ×2 (08:03→12:18)
[2022-11-29] MEDS: APIXABAN 2.5 MG TAB PO SCH ×2 (09:04→20:48)
[2022-11-29] MEDS: PANTOPRAZOLE 40 MG INJ VIAL IVP SCH (09:06)
[2022-11-29] MEDS: DIGOXIN 0.25 MG TAB PO SCH (09:06)
[2022-11-29] MEDS: FUROSEMIDE 20 MG/2 ML VIAL IVP SCH ×2 (09:06→20:51)
[2022-11-29] MEDS: MIDODRINE 5 MG TAB PO SCH ×3 (09:06→17:54)
[2022-11-29] MEDS: DOCUSATE SODIUM 100 MG GELCAP PO SCH ×2 (09:06→20:47)
--- NOTE | 2022-11-29 14:24 | NUR ---
dc planning DC PLANNING 82 Y.O.FEMALE PATIENT RESIDENT OF [facility] SNF ADMITTED IN ICU 11/25 FOR HYPOTENSION AND WEAKNESS.HX OF A.FIB,DM,AND HYPERLIPIDEMIA.STARTED ON LEVOPHED DRIP FOR B/P SUPPORT.DOPPLER STUDY US AND VENOUS DOPPLER (-).CXR- CONSISTENT WITH PNEUMONIA AND PULMONARY EDEMA.ON VANCO AND ZOSYN.CARDIO AND NEPRO FOLLOWING. ON ROOM AIR.DC PLAN- BACK TO [facility] WHEN CONDITION IMPROVES AND PATIENT RESPONDS TO TX.CM TO FOLLOW. Addendum: 11/30/22 at 1433 by BOBBY CORREA CM DC PLANNING PATIENT STILL ON LEVOPHED DRIP.MIDODRINE ADDED.BLOOD ,URINE CULTURE NO GROWTH.NO MRSA ISOLATED.CXR WITH MILD IMPROVEMENT OF BILATERAL PULM OPACITIES.ON ZOSYN.CARDIO, NEPHRO AND PULMO FOLLOWING.CM TO FOLLOW. Addendum: 12/02/22 at 1228 by ZHANNA CARVALHO CM RECEIVED ORDER FOR PATIENT TO GO BACK TO SNF FOR CONTINUE OF CARE. FAXED ALL PAPERWORK TO [facility]. SPOKE WITH KAYKAY FROM THE [facility] LOCATED AT [address] [facility] [id number]. PATIENT WILL BE GOING TO ROOM 20A UNDER DR PAULINO. TRANSPORTATION ARRANGED WITH [facility] WITH A 1600 PERSONAL SECURITY SPECIALIST TIME. NURSE NISHA AND DAUGHTER FABI AWARE OF THE ABOVE INFORMATION.
[2022-11-29] MEDS ORDERED: VANCOMYCIN PER PHARMACY MC PRN (16:05)
[2022-11-29] MEDS: VANCOMYCIN 1,000 MG in DEXTROSE 5% 250 ML IV SCH (16:55)
[2022-11-29] MEDS: POTASSIUM CHLORIDE 10 MEQ TABER PO PRN (17:54)
[2022-11-29] MEDS: DONEPEZIL 10 MG TAB PO SCH (17:55)
[2022-11-29] MEDS: ONDANSETRON 4 MG/2 ML VIAL IVP PRN (19:22)
--- NOTE | 2022-11-29 19:37 | NUR ---
RECEIVED REPORT FROM DAY SHIFT NURSE JOVANNI MOROCHO. ALL CARES ASSUMED. RECEIVED PT SITTING UP ON BED AWAKE AND ORIENTED. ON ROOM AIR WITH O2SAT AT 98%. NO DISTRESS NOTED. WITH RIGHT UPPER ARM PICC LINE INFUSING LEVOPHED AT 2 MCG/MIN AND PERIPHERAL IV ACCESS TO LEFT HAND 20G, CAPPED AND FLUSHED. ON CLOTH BURLER ATRIAL FIBRILLATION. ABDOMINAL SOUNDS ACTIVE. PT IS ON BEDREST ORDERED. SKIN INTACT. PLACED CALL LIGHT WITHIN REACH. MAKE ALL NEEDS KNOWN. PLACED BED TO THE LOWEST HEIGHT FOR SAFETY. NO SIGN AND SYMPTOMS OF PAIN. WILL CONTINUE TO MONITOR.
[2022-11-29] MEDS: ATORVASTATIN 20 MG TAB PO SCH (20:47)
[2022-11-29] MEDS: CITALOPRAM 20 MG TAB PO SCH (20:52)
[2022-11-30] VITALS (23 sets, daily range): BP systolic 78–127; BP diastolic 35–70
[2022-11-30] MEDS: MAG SULF 2000 MG/WATER PREMIX 50 ML IV PRN (01:02)
--- NOTE | 2022-11-30 01:02 | NUR ---
MAG RIDER GIVEN PER PROTOCOL FOR MG LEVEL OF 1.4. KEPT MONITORED.
[2022-11-30] MEDS: NOREPINEPHRINE 4 MG in DEXTROSE 5% 250 ML IV PRN (02:29)
[2022-11-30] MEDS: ALBUTEROL SULFATE/IPRATROPIU 3 ML SOL IH SCH ×3 (03:53→12:02)
[2022-11-30] MEDS: PIPERACILLIN/TAZOBACTAM 3.375 GM in DEXTROSE 5% 50 ML IV SCH ×3 (05:00→20:32)
[2022-11-30] MEDS ORDERED: LEVOTHYROXINE 0.025 MG TAB ONE (05:36)
[2022-11-30] MEDS ORDERED: LEVOTHYROXINE 0.1 MG TAB ONE (05:36)
[2022-11-30] MEDS: LEVOTHYROXINE 0.1 MG, LEVOTHYROXINE 0.025 MG PO SCH ×2 (05:43)
[2022-11-30 06:01] LABS: BASOPHILS % (AUTO) 0.3 % (0.0-2.0); EOSINOPHILS % (AUTO) 0.9 % (0.0-4.0); HEMATOCRIT 34.6 % (36-48); HEMOGLOBIN 11.6 g/dL (12.0-16.0); LYMPHOCYTES # (AUTO) 0.8 K/uL (2.5-16.5); LYMPHOCYTES % (AUTO) 15.7 % (20.5-51.1); MEAN CORPUSCULAR HEMOGLOBIN 29 pg (27-31); MEAN CORPUSCULAR HGB CONC 34 g/dL (33-37); MONOCYTES # (AUTO) 0.3 K/uL (0.8-1.0); MONOCYTES % (AUTO) 5.7 % (1.7-9.3); NEUTROPHILS # (AUTO) 3.9 K/uL (1.8-7.7); NEUTROPHILS % (AUTO) 77.4 % (42.2-75.2); PLATELET COUNT (AUTO) 435 K/uL (140-450); RED BLOOD CELL COUNT(AUTO) 4.07 MIL/uL (4.20-5.40); RED CELL DISTRIBUTION WIDTH 15.2 % (11.6-13.7); WHITE BLOOD COUNT (AUTO) 5.1 K/uL (4.8-10.8)
[2022-11-30 06:24] LABS: ANION GAP 9.1 (8-16); CARBON DIOXIDE 36.1 mmol/L (21-32); CHLORIDE 89 mmol/L (98-107); CREATININE 0.9 mg/dL (0.6-1.3); GLUCOSE 160 mg/dL (74-106); POTASSIUM 3.2 mmol/L (3.5-5.1); SODIUM SERUM 131 mmol/L (136-145); UREA NITROGEN, BLOOD 19 mg/dL (7-18)
[2022-11-30 06:35] LABS: MAGNESIUM 1.6 mg/dL (1.8-2.4); PHOSPHORUS 3.4 mg/dL (2.5-4.9)
--- NOTE | 2022-11-30 07:25 | NUR ---
SBAR REPORT RECEIVED FROM LAVONNE BAIG, ALL CARES ASSUMED. PT RESTING IN BED WITH EYES CLOSED. ON RA. LEVOPHED 2MCG/MIN INFUSING TO SYDNEY PICC. PUREWICK IN PLACE, CONNECTED TO SUCTION. BED IN LOW AND LOCKED POSITION, CALL LIGHT WITHIN REACH.
[2022-11-30] MEDS: BLOOD GLUCOSE MONITORING 1 DEV DEV FS SCH ×4 (07:35→20:31)
[2022-11-30] MEDS: FUROSEMIDE 20 MG/2 ML VIAL IVP SCH (09:19)
[2022-11-30] MEDS: DOCUSATE SODIUM 100 MG GELCAP PO SCH ×2 (09:19→20:32)
[2022-11-30] MEDS: PANTOPRAZOLE 40 MG INJ VIAL IVP SCH (09:19)
[2022-11-30] MEDS: APIXABAN 2.5 MG TAB PO SCH ×2 (09:20→21:22)
[2022-11-30] MEDS: DIGOXIN 0.25 MG TAB PO SCH (09:21)
[2022-11-30] MEDS: MIDODRINE 5 MG TAB PO SCH (09:21)
[2022-11-30] MEDS: INSULIN LISPRO SLIDING SCALE 100 UNITS/ML VIAL SUBQ PRN (11:45)
--- NOTE | 2022-11-30 11:58 | NUR ---
DR. BENI ARZATE AT BEDSIDE; REVIEWED [facility] THERAPY FREQUENCY; VORBO: DC Q4 FREQUENCY CHANGE TO Q4 PRN FOR SOB/WHEEZE
[2022-11-30] MEDS: ONDANSETRON 4 MG/2 ML VIAL IVP PRN (12:29)
[2022-11-30] MEDS ORDERED: ALBUTEROL SULFATE/IPRATROPIU 3 ML SOL IH PRN (12:50)
--- NOTE | 2022-11-30 14:10 | NUR ---
PT COMPLAINED OF NAUSEA, PRN ZOFRAN GIVEN PER ORDER, PT NAUSEA UNRELIEVED. TELEPHONE ORDER RECEIVED FROM DR MANUEL FOR KUB, REGLAN 10MG IVP ONCE AND CLEAR LIQUID DIET.
[2022-11-30] MEDS ORDERED: METOCLOPRAMIDE 10 MG/2 ML INJ VIAL IVP SCH (14:15)
--- NOTE | 2022-11-30 15:43 | NUR ---
11/30/22 RD FOLLOW UP COMPLETED PLEASE REFER TO NUTRITION ASSESSMENT UNDER CARE ACTIVITY FOR ESTIMATED NUTRITIONAL NEEDS. 1. CONTINUE MECHANICAL SOFT, [id number] DIET WITH GLUCERNA BID TOLERATED -GLUCERNA BID PROVIDES 440 KCAL AND 20 GM PROTEIN DAILY 2. MONITOR PO INTAKE AND NUTRITION RELATED LAB VALUES 3. RD TO FOLLOW-UP 2-3 DAYS, HIGH RISK REVIEWED BY KERI WILKINS RD
[2022-11-30] MEDS: DONEPEZIL 10 MG TAB PO SCH (16:53)
[2022-11-30] MEDS: POTASSIUM CHLORIDE 10 MEQ TABER PO PRN (17:44)
--- NOTE | 2022-11-30 18:29 | NUR ---
PT NO LONGER COMPLAINING OF NAUSEA, ABLE TO TAKE EVENING MEDICATION WITHOUT DIFFICULTY. PT IS RESTING IN BED WITH EYES CLOSED. WILL ENDORSE TO NIGHT RN.
--- NOTE | 2022-11-30 19:22 | NUR ---
Report received from RN for continuity of care. Patient resting in bed with good rise and fall of chest, VSS. Patient appears to not be in any distress at this time. All cares assumed.
[2022-11-30] MEDS: ATORVASTATIN 20 MG TAB PO SCH (20:32)
[2022-11-30] MEDS: CITALOPRAM 20 MG TAB PO SCH (20:32)
[2022-11-30] MEDS ORDERED: METOCLOPRAMIDE 10 MG/2 ML INJ VIAL IVP PRN (21:00)
[2022-11-30] MEDS ORDERED: MIDODRINE 5 MG TAB PO SCH (21:00)
[2022-12-01] VITALS (23 sets, daily range): BP systolic 96–139; BP diastolic 32–63
--- NOTE | 2022-12-01 | NUR ---
Patient offered fluids but refused. Patient continues to remain drowsy. Patient repositioned and oral/ perineal care provided. Cares continue.
--- NOTE | 2022-12-01 01:19 | NUR ---
Attempted to titrate down patient Levophed due to stable blood pressures. BP 78/65. Levophed placed back on at 2mcg. Cares continue.
--- NOTE | 2022-12-01 02:27 | NUR ---
1899-RECEIVED ENDORSEMENT FROM [place] ICU CHARGE NURSE, PT . WAS OFFEREDHER MEAL TRAY BUT REFUSED
--- NOTE | 2022-12-01 03:34 | NUR ---
Patient had large, loose, and watery BM. Perineal care provided. Patient repositioned and tolerated well. Cares continue.
--- NOTE | 2022-12-01 04:20 | NUR ---
Morning labs drawn via central line. Lab at bedside to collect specimen. Patient tolerated well.
[2022-12-01] MEDS: PIPERACILLIN/TAZOBACTAM 3.375 GM in DEXTROSE 5% 50 ML IV SCH ×3 (04:54→22:02)
[2022-12-01] MEDS ORDERED: LEVOTHYROXINE 0.1 MG TAB ONE (06:23)
[2022-12-01] MEDS ORDERED: LEVOTHYROXINE 0.025 MG TAB ONE (06:23)
[2022-12-01] MEDS: LEVOTHYROXINE 0.1 MG, LEVOTHYROXINE 0.025 MG PO SCH ×2 (06:24)
[2022-12-01] MEDS: BLOOD GLUCOSE MONITORING 1 DEV DEV FS SCH ×4 (06:55→22:00)
--- NOTE | 2022-12-01 07:00 | NUR ---
Patient blood sugar 184. 2 units of coverage provided per MD orders. Addendum: 12/01/22 at 0701 by Agency Marcy BAIG RN Sliding scale dose verified with Julián BAIG.
--- NOTE | 2022-12-01 07:05 | NUR ---
Report given to Jaimie BAIG for continuity of care. All cares endorsed.
--- NOTE | 2022-12-01 08:00 | NUR ---
RECEIVED PATIENT IN BED, LETHARGIC AND AROUSALABLE, O2 SAT 96% IN ROOM AIR, A FIB ON THE MONITOR, INCONTINENCE WITH PUVIC CATH ON , RECTAL TUBE IN PLACE , NS AT TKO AND LEVOPHED AT 2 MCG/KG/MIN TO KEEP SBP >90 , INFUSING AT SYDNEY WITH DRESSING INTACT. WILL CONTINUE TO MONITOR.
[2022-12-01 08:28] LABS: BASOPHILS % (AUTO) 0.5 % (0.0-2.0); EOSINOPHILS # (AUTO) 0.1 K/uL (0-0.4); EOSINOPHILS % (AUTO) 1.3 % (0.0-4.0); HEMATOCRIT 36.3 % (36-48); HEMOGLOBIN 12.1 g/dL (12.0-16.0); LYMPHOCYTES # (AUTO) 0.7 K/uL (2.5-16.5); LYMPHOCYTES % (AUTO) 14.2 % (20.5-51.1); MEAN CORPUSCULAR HEMOGLOBIN 29 pg (27-31); MEAN CORPUSCULAR HGB CONC 33 g/dL (33-37); MEAN CORPUSCULAR VOLUME 86.1 fL (80-94); MONOCYTES # (AUTO) 0.3 K/uL (0.8-1.0); MONOCYTES % (AUTO) 5.6 % (1.7-9.3); NEUTROPHILS % (AUTO) 78.4 % (42.2-75.2); PLATELET COUNT (AUTO) 523 K/uL (140-450); RED BLOOD CELL COUNT(AUTO) 4.22 MIL/uL (4.20-5.40); RED CELL DISTRIBUTION WIDTH 15.3 % (11.6-13.7); WHITE BLOOD COUNT (AUTO) 5.1 K/uL (4.8-10.8)
[2022-12-01 08:41] LABS: MAGNESIUM 1.6 mg/dL (1.8-2.4); PHOSPHORUS 3.4 mg/dL (2.5-4.9)
[2022-12-01] MEDS: PANTOPRAZOLE 40 MG INJ VIAL IVP SCH (08:52)
[2022-12-01] MEDS: DOCUSATE SODIUM 100 MG GELCAP PO SCH ×2 (08:53→22:06)
[2022-12-01] MEDS: APIXABAN 2.5 MG TAB PO SCH ×2 (08:53→22:05)
[2022-12-01 08:55] LABS: ANION GAP 11.4 (8-16); CARBON DIOXIDE 35.7 mmol/L (21-32); CHLORIDE 89 mmol/L (98-107); CREATININE 1.1 mg/dL (0.6-1.3); GLUCOSE 165 mg/dL (74-106); POTASSIUM 3.1 mmol/L (3.5-5.1); SODIUM SERUM 133 mmol/L (136-145); UREA NITROGEN, BLOOD 17 mg/dL (7-18)
[2022-12-01] MEDS: DIGOXIN 0.25 MG TAB PO SCH (08:55)
[2022-12-01] MEDS ORDERED: FUROSEMIDE 20 MG/2 ML VIAL IVP SCH (09:00)
--- NOTE | 2022-12-01 09:00 | NUR ---
PO MEDS GIVEN AND DRINK SOME TEAS PER PATIENT REQUEST, SHE FEEL NAUSEATED AND ZOFRAN 4 MG IVP GIVEN ORDERED.
[2022-12-01] MEDS: MIDODRINE 5 MG TAB PO SCH ×3 (09:11→22:04)
[2022-12-01] MEDS: ONDANSETRON 4 MG/2 ML VIAL IVP PRN (09:25)
[2022-12-01] MEDS: MAG SULF 2000 MG/WATER PREMIX 50 ML IV PRN (11:39)
[2022-12-01] MEDS: NOREPINEPHRINE 4 MG in DEXTROSE 5% 250 ML IV PRN (11:39)
[2022-12-01] MEDS ORDERED: POTASSIUM CHLORIDE 40 MEQ, LIDOCAINE 1% 25 MG in NACL 0.9% 250 ML IV ONE (12:00)
[2022-12-01] MEDS ORDERED: VANCOMYCIN 500 MG in DEXTROSE 5% 100 ML IV SCH (12:00)
--- NOTE | 2022-12-01 12:12 | NUR ---
A FIB ON THE MONITOR WITH RATE OF 41- 60'S , DR SUERO SAW THE RATE AT BEDSIDE , HE UPDATED FAMILY AT BEDSIDE. NO NEW ORDER NOTED.
--- NOTE | 2022-12-01 12:15 | NUR ---
K 3.1 RECEIVED K RIDER ORDER FROM DR MANUEL, PATIENT STILL DROWSY BUT AROUSABLE.
--- NOTE | 2022-12-01 12:18 | NUR ---
BS 104 NO COVERAGE PER SLIDING SCALE
--- NOTE | 2022-12-01 15:11 | NUR ---
OFF LEVOPHED AT 1200M PATIENT TOLERATE WELL AT THIS TIME , FAMILY AT BEDSIDE AND ANSWERED ALL THE QUESTION.
[2022-12-01] MEDS: DONEPEZIL 10 MG TAB PO SCH (16:48)
[2022-12-01] MEDS: CITALOPRAM 20 MG TAB PO SCH (22:06)
[2022-12-01] MEDS: ATORVASTATIN 20 MG TAB PO SCH (22:08)
[2022-12-02] VITALS (9 sets, daily range): BP systolic 96–222; BP diastolic 36–73
--- NOTE | 2022-12-02 01:23 | NUR ---
0000- REPOSITIONED AND ORAL CARE DONE
--- NOTE | 2022-12-02 02:24 | NUR ---
0200- ASLEEP, REMAINS 0N CONTROLLED ON AFIB
--- NOTE | 2022-12-02 02:29 | NUR ---
1999- SIDERAIL UP TIMES 3 IN NO DISTRESS. ON AFIB [id number]
--- NOTE | 2022-12-02 02:31 | NUR ---
2200- ORAL CARE GIVEN, REPOSTIONED
--- NOTE | 2022-12-02 02:32 | NUR ---
1899- ENDORSEMENT WASGIVEN BY LALIT ORTEZ CATEGORY SPECIALIST NURSE
--- NOTE | 2022-12-02 02:35 | NUR ---
0000- AFEBRILE, NO NAUSEA NOR VOMITING
--- NOTE | 2022-12-02 02:37 | NUR ---
2200 AFEBILE NO NAUSEA OR VOMITING
--- NOTE | 2022-12-02 03:42 | NUR ---
0400-REPOSITIONE AND ORAL CARE DONE
[2022-12-02] MEDS: PIPERACILLIN/TAZOBACTAM 3.375 GM in DEXTROSE 5% 50 ML IV SCH ×2 (04:15→14:16)
[2022-12-02] MEDS: MIDODRINE 5 MG TAB PO SCH ×2 (04:18→14:17)
[2022-12-02 05:46] LABS: BASOPHILS % (AUTO) 0.5 % (0.0-2.0); EOSINOPHILS # (AUTO) 0.1 K/uL (0-0.4); EOSINOPHILS % (AUTO) 1.1 % (0.0-4.0); HEMATOCRIT 34.7 % (36-48); HEMOGLOBIN 11.6 g/dL (12.0-16.0); LYMPHOCYTES # (AUTO) 0.7 K/uL (2.5-16.5); LYMPHOCYTES % (AUTO) 13.1 % (20.5-51.1); MEAN CORPUSCULAR HEMOGLOBIN 29 pg (27-31); MEAN CORPUSCULAR HGB CONC 33 g/dL (33-37); MEAN CORPUSCULAR VOLUME 86.1 fL (80-94); MONOCYTES # (AUTO) 0.4 K/uL (0.8-1.0); MONOCYTES % (AUTO) 6.4 % (1.7-9.3); NEUTROPHILS # (AUTO) 4.5 K/uL (1.8-7.7); NEUTROPHILS % (AUTO) 78.9 % (42.2-75.2); PLATELET COUNT (AUTO) 515 K/uL (140-450); RED BLOOD CELL COUNT(AUTO) 4.03 MIL/uL (4.20-5.40); RED CELL DISTRIBUTION WIDTH 15.6 % (11.6-13.7); WHITE BLOOD COUNT (AUTO) 5.7 K/uL (4.8-10.8)
[2022-12-02] MEDS ORDERED: LEVOTHYROXINE 0.1 MG TAB ONE ×2 (05:47→05:58)
[2022-12-02] MEDS ORDERED: LEVOTHYROXINE 0.025 MG TAB ONE ×2 (05:47→05:58)
[2022-12-02] MEDS: LEVOTHYROXINE 0.1 MG, LEVOTHYROXINE 0.025 MG PO SCH ×2 (06:13)
[2022-12-02 06:26] LABS: ANION GAP 13.6 (8-16); CARBON DIOXIDE 34.7 mmol/L (21-32); CHLORIDE 92 mmol/L (98-107); GLUCOSE 91 mg/dL (74-106); POTASSIUM 3.3 mmol/L (3.5-5.1); SODIUM SERUM 137 mmol/L (136-145); UREA NITROGEN, BLOOD 15 mg/dL (7-18)
--- NOTE | 2022-12-02 06:27 | NUR ---
0600- REPOSITIONED AND ORAL CARE DONE
[2022-12-02] MEDS: BLOOD GLUCOSE MONITORING 1 DEV DEV FS SCH ×2 (07:32→11:30)
--- NOTE | 2022-12-02 07:35 | NUR ---
0730- ENDORSEMENT REPORT AT BEDSIDE GIVEN TO NISHA-THE NURSING SOIL ANALYST
[2022-12-02] MEDS: PANTOPRAZOLE 40 MG INJ VIAL IVP SCH (08:03)
[2022-12-02] MEDS: DOCUSATE SODIUM 100 MG GELCAP PO SCH ×2 (08:05→08:09)
[2022-12-02] MEDS: APIXABAN 2.5 MG TAB PO SCH (08:06)
--- NOTE | 2022-12-02 08:31 | NUR ---
RECEIVED PATIENT IN BED, ALERT, Denied chest pain, DNR, noted with poor appetite, turned and reposition. AM meds given, has rectal tube, intact, has picc line, intact. order patient to transfer to Tele. will continue to monitor.
[2022-12-02] MEDS ORDERED: POTASSIUM CHLORIDE 20% 40 MEQ/15 ML UDC PO SCH (10:30)
[2022-12-02] MEDS ORDERED: VANCOMYCIN 500 MG in DEXTROSE 5% 100 ML IV SCH (12:00)
[2022-12-02] MEDS: INSULIN LISPRO SLIDING SCALE 100 UNITS/ML VIAL SUBQ PRN (14:18)
--- NOTE | 2022-12-02 15:01 | NUR ---
12/02/22 RD FOLLOW UP COMPLETED PLEASE REFER TO NUTRITION ASSESSMENT UNDER CARE ACTIVITY FOR ESTIMATED NUTRITIONAL NEEDS. 1. CONTINUE CLEAR LIQUID DIET PER MD 2. RECOMMEND ENSURE CLEAR TID -PROVIDES 720 KCAL AND 24 GM PROTEIN DAILY 3. MONITOR PO INTAKE 4. WHEN/IF DIET READY TO BE ADVANCED, RECOMMEND MECHANICAL SOFT, [id number] DIET PER ST RECOMMENDATION TOLERATED 5. RD TO FOLLOW-UP 3-5 DAYS, MODERATE RISK REVIEWED BY KERI WILKINS RD
--- NOTE | 2022-12-02 16:47 | NUR ---
Picc line d/c. Patient changed, had BM soft, placed on diaper for the ride. Patient placed on the gurney, stable. BP 109/45. Patient left in stable condition. informed Katelynn at [facility].
== END 2022-12-02 16:40 | DRG 871 ==
LOC: MED 09:49 → MTU 12:48 → MIC 11-26 20:57
PROC: 05HY33Z Insertion of Infusion Device into Upper Vein, Percutaneous Approach (ICD-10-PCS; principal; 2022-11-25)
DX: A41.9 Sepsis, unspecified organism (principal); G93.41 Metabolic encephalopathy; J69.0 Pneumonitis due to inhalation of food and vomit; R65.21 Severe sepsis with septic shock; J96.01 Acute respiratory failure with hypoxia; I50.23 Acute on chronic systolic (congestive) heart failure; E44.0 Moderate protein-calorie malnutrition; E87.20 Acidosis, unspecified; I48.20 Chronic atrial fibrillation, unspecified; E87.1 Hypo-osmolality and hyponatremia; Z68.1 Body mass index [BMI] 19.9 or less, adult; E03.9 Hypothyroidism, unspecified; E78.5 Hyperlipidemia, unspecified; E11.9 Type 2 diabetes mellitus without complications; E86.0 Dehydration; F03.90 Unspecified dementia, unspecified severity, without behavioral disturbance, psychotic disturbance, mood disturbance, and anxiety; I35.0 Nonrheumatic aortic (valve) stenosis; I11.0 Hypertensive heart disease with heart failure; E83.51 Hypocalcemia; Z20.822 Contact with and (suspected) exposure to COVID-19; D63.1 Anemia in chronic kidney disease; Z79.899 Other long term (current) drug therapy; Z79.01 Long term (current) use of anticoagulants; Z90.49 Acquired absence of other specified parts of digestive tract
CPT/HCPCS: 36415; 36600; 71045; 74018; 80048; 80053; 80202; 80305; 81001; 82140; 82150; 82803; 82948; 83036; 83605; 83690; 83735; 83880; 84100; 84439; 84443; 84484; 85025; 85610; 85730; 87040; 87081; 87086; 92526; 93005; 93925; 93970; 94640; 94660; 96361; 96365; 99285; C9113; J0696; J1160; J1815; J1940; J2001; J2405; J2543; J2765; J3370; J3475; J3480; J3490; J7030; J7060; Q0092